=== PATIENT | female | born 1995 | race Caucasian/White ===

== ENCOUNTER 2021-11-17 17:42 | Emergency (ER) | payer BC, SELFPAY ==
[2021-11-17 17:54] VITALS: BP 99/64; PULSE 98; RESP 14; TEMP 37.1; O2SAT 99
--- NOTE | 2021-11-17 18:04 | ED.FEMALEGU ---
HPI - Female Genitourinary General Chief complaint: Urogenital-Female Stated complaint: Urinary Problem Time Seen by Provider: 11/17/21 18:04 Source: patient, RN notes reviewed and old records reviewed Mode of arrival: ambulatory Limitations: no limitations History of Present Illness HPI Narrative: 26-year-old female who presents to [facility] with complaints of 2-day history of urinary frequency burning suprapubic pressure and mid lower back pain. Patient denies any vaginal bleeding or any vaginal discharge or any itching, denies any concern for exposure to STD's. Patient states that she took 3 doses of Macrobid that her [id number] gave her and she has been consuming large quantities of water. Patient states that she is breast feeding. Patient reports that she has had UTI's in the past with similar symptoms.Patient denies any nausea or vomiting or any fevers, chills or sweats. MD elicited complaint: dysuria, back pain and other (suprapubic pain) Pertinent past history: other (previous UTI's) Location of symptoms: suprapubic and low back Related Data Allergies Allergy/AdvReac Type Severity Reaction Status Date / Time amoxicillin [From Augmentin] Allergy Blister Verified 11/17/21 17:58 clavulanic acid Allergy Blister Verified 11/17/21 17:58 [From Augmentin] clindamycin Allergy Rash Verified 11/17/21 17:58 phenazopyridine [From Azo] Allergy Nausea and Verified 11/17/21 17:58 Vomiting Review of Systems Review of Systems: CONSTITUTIONAL: Denies fever, chills, or sweats. EYES: Denies visual changes, redness, or discharge. ENT: Denies rhinorrhea, congestion, sore throat, or otalgia. CARDIOVASCULAR: Denies chest pain, palpitations, or edema. RESPIRATORY: Denies cough or dyspnea. GASTROINTESTINAL: suprapubic abdominal pressure, no nausea, vomiting, or diarrhea. GENITOURINARY: Positive dysuria no visible hematuria SKIN: Denies rash or itching. MUSCULOSKELETAL: reports mid lumbar back pain, no joint pain, or myalgia. NEUROLOGIC: Denies headache, numbness, or weakness. PSYCHIATRIC: Positive for history of anxiety or depression. All systems reviewed & are unremarkable except as noted in HPI and below [facility] Past Medical History Medical History (Updated 11/18/21 @ 07:54 by Leidy Tam NP) Anxiety UTI (urinary tract infection) Surgical History Surgical History (Updated 11/18/21 @ 07:53 by Leidy Tam NP) H/O bilateral inguinal hernia repair History of tonsillectomy Social History Social History (Updated 11/17/21 @ 18:24 by Leidy Tam NP) Smoking status: Never smoker Alcohol intake: unknown Substance use: never Living arrangements: with family Gender identity (if verbalized by the patient): Female Comments At time of signature, agree with nursing past medical, surgical, social and family history. There is no relevant family history pertinent to the presenting complaint Exam Narrative: GENERAL: Well-appearing, well-nourished, and in no acute distress. HEAD: Normocephalic, atraumatic. EYES: PERRLA and EOMI. ENT: Nares clear, no rhinorrhea or epistaxis. Mucous membranes moist.TM's normal with good light reflex, throat pink with no lesions or exudates, no tonsils present. NECK: Supple.no lymphadenopathy CHEST: Clear to auscultation. No respiratory distress. HEART: Regular rate and rhythm. No murmur heard. Normal peripheral pulses. ABDOMEN: Soft, tender suprapubic abdomen, nondistended, normal active bowel sounds.No CVA tenderness noted on examination EXTREMITIES: Normal range of motion. No edema. SKIN: Warm, dry, no rash. NEURO: No focal deficits. Alert and oriented x3. Course Course Level of Care: Express Care Visit Vital Signs Vital signs: Vital Signs Temperature 37.1 C 11/17/21 17:54 Pulse Rate 98 11/17/21 17:54 Respiratory Rate 14 11/17/21 17:54 Blood Pressure 99/64 L 11/17/21 17:54 Pulse Oximetry 99 11/17/21 17:54 Temperature 37.1 C 11/17/21 17:5
== END 2021-11-17 18:21 | disposition home or self-care (01) ==
PROVIDERS: Emergency Provider Registered Nurse
DX: R30.0 Dysuria (principal); R35.0 Frequency of micturition; R10.30 Lower abdominal pain, unspecified; M54.50 Low back pain, unspecified
CPT/HCPCS: 81003; 87077; 87086; 87088; 99213; G0463

== ENCOUNTER 2022-03-04 09:28 | Emergency (ER) | payer SELFPAY ==
--- NOTE | 2022-03-04 09:39 | ED.EAR ---
HPI - Ear Problem General Chief complaint: Ear Stated complaint: ear infection Time Seen by Provider: 03/04/22 09:40 Source: patient Mode of arrival: ambulatory Limitations: no limitations History of Present Illness HPI Narrative: Ms. Ashley is a 26-year-old female patient presenting to the clinic today with complaints of possible ear infection x2 3 days. Mother reports that both of her ears have been hurting. States she is still nasally congested and her ears are congested as well. Reports having COVID 2 to 3 weeks ago. She denies any fever or chills. She is currently breast-feeding. Related Data Allergies Allergy/AdvReac Type Severity Reaction Status Date / Time amoxicillin [From Augmentin] Allergy Blister Verified 03/04/22 09:34 clavulanic acid Allergy Blister Verified 03/04/22 09:34 [From Augmentin] clindamycin Allergy Rash Verified 03/04/22 09:34 phenazopyridine [From Azo] Allergy Nausea and Verified 03/04/22 09:34 Vomiting Review of Systems Review of Systems: Pertinent positives per HPI. Patient denies any fever, chills, rash, headache, visual changes, dizziness, cough, runny nose, sore throat, shortness of breath, chest pain, palpitations, nausea, vomiting, diarrhea, constipation, abdominal pain, or any urinary issues. PMFSH Past Medical History Medical History Anxiety UTI (urinary tract infection) Surgical History Surgical History H/O bilateral inguinal hernia repair History of tonsillectomy Social History Social History Smoking status: Never smoker Alcohol intake: unknown Substance use: never Gender identity (if verbalized by the patient): Female Comments At the time of my signature, I reviewed and agree with the nursing past medical, surgical, social, and family history. There is no relevant family history pertinent to the patient complaint. Exam Narrative: General: Well-developed, well nourished, in no apparent distress Head: Normocephalic, atraumatic Eyes: Pupils equally round and reactive to light bilaterally, EOM intact, sclera and conjunctive clear, no discharge, lids normal Ears: TMs intact, dull, mild bulging, ear canals clear, no drainage, grossly hearing normal. Nose: Nares patent, clear nasal discharge, no inflammation, no sinus tenderness. Mouth: Oropharynx without lesions or masses, good dentition, MMM. Postnasal drip Neck: Supple, trachea midline, no enlargement of anterior or posterior cervical nodes, no thyroid masses or goiter palpable. Cardio: Regular rate and rhythm, s1 and s2 normal, no murmur appreciated. Resp: Clear to auscultation bilaterally anteriorly and posteriorly, no rhonchi, rales, wheezing or rubs Course Course Emergency Course: Portions of this record may have been created with voice recognition software. Level of Care: Express Care Visit Vital Signs Vital signs: Vital Signs Temperature 36.8 C 03/04/22 09:42 Pulse Rate 116 H 03/04/22 09:42 Respiratory Rate 16 03/04/22 09:42 Blood Pressure 102/69 03/04/22 09:42 Pulse Oximetry 99 03/04/22 09:42 Oxygen Delivery Room Air 03/04/22 09:42 Temperature 36.8 C 03/04/22 09:42 Pulse Rate 116 H 03/04/22 09:42 Respiratory Rate 16 03/04/22 09:42 Blood Pressure 102/69 03/04/22 09:42 Pulse Oximetry 99 03/04/22 09:42 Oxygen Delivery Room Air 03/04/22 09:42 Vital signs reviewed Medical Decision Making MDM Narrative Medical decision making narrative: At the time of visit patient is resting comfortably on the exam table. I suspect the patient has URI with eustachian tube dysfunction. Prednisone has been prescribed to help with congestion and ear pressure. Supportive measures were discussed with the patient she voiced understanding of discharge instructions Differential D
[2022-03-04 09:42] VITALS: BP 102/69; PULSE 116; RESP 16; TEMP 36.8; O2SAT 99
== END 2022-03-04 10:04 | disposition home or self-care (01) ==
PROVIDERS: Emergency Provider Nurse Practitioner Family
DX: H69.93 Unspecified Eustachian tube disorder, bilateral (principal); J06.9 Acute upper respiratory infection, unspecified; Z86.16 Personal history of COVID-19
CPT/HCPCS: 99213; G0463

== ENCOUNTER 2022-12-28 09:18 | Emergency (ER) | payer SELFPAY ==
[2022-12-28 09:23] VITALS: BP 110/61; PULSE 120; RESP 16; TEMP 36.5; O2SAT 100
--- NOTE | 2022-12-28 09:25 | ECG_ITS ---
Measurements Intervals Scalf Rate: 110 P: 78 MD: 135 QRS: 42 QRSD: 86 T: 51 QT: 322 QTc: 437 Interpretive Statements SINUS TACHYCARDIA RSR' IN V1 OR V2, PROBABLY NORMAL VARIANT BASELINE ARTIFACT- I, II, III ABNORMAL ECG NO PREVIOUS ECG AVAILABLE FOR COMPARISON Electronically Signed On 12-28-2022 12:27:53 CDT by Errol Alegria D.O.
--- NOTE | 2022-12-28 09:54 | ED.GENADULT ---
HPI - General Adult General Chief complaint: Allergic Reaction Stated complaint: heart palpitations, dizzy, shaky Time Seen by Provider: 12/28/22 09:39 Source: patient Mode of arrival: ambulatory Limitations: no limitations History of Present Illness HPI narrative: Patient is a 27 y/o female who presents to the ED with c/o possible allergic reaction. Patient reports she took Midol around 8am this morning for menstrual cramps. She has taken this before for similar sx's. Around 830am, she began feeling very shaky, jittery, anxious, dizzy, lightheaded, nauseous. She developed tightness in her chest and throat, which prompted her presentation. Patient did not take anything for sx's. Denies ever having issues with Midol previously. She feels somewhat better currently, but still does report the sensation of tightness in her throat. She denies any difficulty breathing or swallowing, shortness of breath, swelling of tongue/lips, rash, itching, vomiting, fevers, abdominal pain. Related Data Allergies Allergy/AdvReac Type Severity Reaction Status Date / Time amoxicillin [From Augmentin] Allergy Blister Verified 03/04/22 09:34 clavulanic acid Allergy Blister Verified 03/04/22 09:34 [From Augmentin] clindamycin Allergy Rash Verified 03/04/22 09:34 phenazopyridine [From Azo] Allergy Nausea and Verified 03/04/22 09:34 Vomiting Review of Systems Review of Systems: CONSTITUTIONAL: Denies fever, chills, or sweats. ENT: See HPI. CARDIOVASCULAR: See HPI. RESPIRATORY: Denies cough or dyspnea. GASTROINTESTINAL: See HPI. NEUROLOGIC: See HPI. PSYCHIATRIC: See HPI. All systems reviewed & are unremarkable except as noted in HPI and below PMFSH Past Medical History Medical History Anxiety UTI (urinary tract infection) Surgical History Surgical History H/O bilateral inguinal hernia repair History of tonsillectomy Social History Social History Smoking status: Never smoker Alcohol intake: unknown Substance use: never Living arrangements: with family Gender identity (if verbalized by the patient): Female Exam Narrative: GENERAL: Well appearing, thin, non-toxic, in no acute distress. HEAD: Normocephalic, atraumatic. ENT: Mucous membranes slightly dry. No swelling of lips or tongue. No mucosal lesions. Airway patent, able to visualize entirety of posterior pharynx. Uvula midline. Tonsils absent. NECK: Supple. No adenopathy, no masses. No swelling. RESPIRATORY: Airway patent, respirations nonlabored. Clear to auscultation bilaterally, no rales, rhonchi, wheezing. No distress. CARDIOVASCULAR: Regular rate and rhythm without murmurs, rubs, or gallops. Radial pulses 2+ and equal bilaterally. ABDOMINAL: Soft, nontender, nondistended, no hepatosplenomegaly. Normoactive BS. MUSCULOSKELETAL: Moves all extremities. Strength/ROM intact without gross deformities. SKIN: Warm, dry, normal color. No rashes. No urticaria. NEURO: A&O X3. Speech clear. Cranial nerves II-XII grossly intact. Steady gait. Slightly tremulous in upper extremities. PSYCHIATRIC: Anxious. Normal interaction. Course Vital Signs Vital signs: Vital Signs Temperature 97.7 F 12/28/22 09:23 Pulse Rate 120 H 12/28/22 09:23 Respiratory Rate 16 12/28/22 09:23 Blood Pressure 110/61 12/28/22 09:23 Pulse Oximetry 100 12/28/22 09:23 Oxygen Delivery Room Air 12/28/22 09:23 Temperature 97.7 F 12/28/22 09:23 Pulse Rate 95 12/28/22 12:17 Respiratory Rate 20 12/28/22 12:17 Blood Pressure 97/58 L 12/28/22 12:17 Pulse Oximetry 100 12/28/22 12:17 Oxygen Delivery Room Air 12/28/22 09:23 Medical Decision Making MDM Narrative Medical decision making narrative: Patient presented to ED with possible allergic reaction after taking Midol thi
[2022-12-28 10:12] VITALS: BP 107/76; PULSE 102; RESP 18; O2SAT 100
[2022-12-28] MEDS: FAMOTIDINE 20 MG/2 ML VIAL IV PUSH (10:19)
[2022-12-28] MEDS: SODIUM CHLORIDE 0.9% IV 1,000 ML 999 ML IV CONT (10:19)
[2022-12-28] MEDS: diphenhydrAMINE HCl INJ 50 MG/ML VIAL 25 MG IV PUSH (10:19)
[2022-12-28 10:29] VITALS: BP 107/63; PULSE 78
[2022-12-28 10:30] VITALS: BP 110/68; PULSE 91
[2022-12-28 10:32] VITALS: BP 112/62; PULSE 112
[2022-12-28 12:17] VITALS: BP 97/58; PULSE 95; RESP 20; O2SAT 100
== END 2022-12-28 12:25 | disposition home or self-care (01) ==
PROVIDERS: Emergency Provider Physician Assistant
DX: R25.8 Other abnormal involuntary movements (principal); Z87.440 Personal history of urinary (tract) infections; R00.0 Tachycardia, unspecified; T50.995A Adverse effect of other drugs, medicaments and biological substances, initial encounter
CPT/HCPCS: 81025; 93005; 96361; 96374; 96375; 99284; J1200; J7030

== ENCOUNTER 2023-06-14 08:56 | Emergency (ER) | payer OTHER, MEDICAID, SELFPAY ==
--- NOTE | 2023-06-14 09:04 | ED.FEMALEGU ---
HPI - Female Genitourinary General Chief complaint: Urogenital-Female Stated complaint: UTI Time Seen by Provider: 06/14/23 09:11 Source: patient Mode of arrival: ambulatory Limitations: no limitations History of Present Illness HPI Narrative: Bronwyn is a 27-year-old female patient presenting to the clinic today with complaints of possible UTI. She reports she is having some burning with urination. Also reports some vaginal itching. States she did a Monistat 3 and this did not seem to help. Reports she has had recent increase in intercourse with her over the last week. Has had the symptoms for 4 days now. She denies any fever or chills. She denies any abdomen pain or back pain. Related Data Allergies Allergy/AdvReac Type Severity Reaction Status Date / Time amoxicillin [From Augmentin] Allergy Blister Verified 06/14/23 09:01 clavulanic acid Allergy Blister Verified 06/14/23 09:01 [From Augmentin] clindamycin Allergy Rash Verified 06/14/23 09:01 phenazopyridine [From Azo] Allergy Nausea and Verified 06/14/23 09:01 Vomiting Review of Systems Review of Systems: Pertinent positives per HPI. Patient denies any fever, chills, rash, headache, visual changes, dizziness, cough, runny nose, sore throat, shortness of breath, chest pain, palpitations, nausea, vomiting, diarrhea, constipation, abdominal pain. PMF Past Medical History Medical History Anxiety UTI (urinary tract infection) Surgical History Surgical History H/O bilateral inguinal hernia repair History of tonsillectomy Social History Social History Smoking status: Never smoker Alcohol intake: unknown Substance use: never Living arrangements: with family Gender identity (if verbalized by the patient): Female Comments At the time of my signature, I reviewed and agree with the nursing past medical, surgical, social, and family history. There is no relevant family history pertinent to the patient complaint. Course Course Emergency Course: Portions of this record may have been created with voice recognition software. Level of Care: Express Care Visit Vital Signs Vital signs: Vital signs reviewed MDM - Female Genitourinary MDM Narrative Medical decision making narrative: At the time of visit patient is resting comfortably on the exam table. Patient is nontoxic appearing. i suspect patient has a urinary tract infection. Urinalysis shows 1+ leukocyte and trace of blood. Will send in prescription for Macrobid as well as some Diflucan. Supportive measures were discussed with the patient she voiced understanding discharge instructions agrees to treatment plan. Differential Diagnosis Differential diagnosis: Likely urinary tract infection, bacterial vaginosis, vaginitis and cystitis Discharge Plan Discharge Clinical Impression: UTI (urinary tract infection) Qualifiers: Urinary tract infection type: acute cystitis Hematuria presence: with hematuria Qualified Code(s): N30.01 - Acute cystitis with hematuria Patient Disposition: Home, Self-Care Condition: Stable Instructions: Antibiotic Form, Urinary Tract Infection in Women (ED) Additional Instructions: Urinalysis shows 1+ leukocytes and trace of blood Will place you on Macrobid Take Diflucan as prescribed Increase fluids and stay well hydrated Wipe front to back. May use wet wipes. Avoid tub baths If sexually active- pee before and after intercourse. Wear cotton panties Avoid tight clothing up against the genitals Follow up with your PCP in 1 week if symptoms persist. Prescriptions: New nitrofurantoin monohyd/m-cryst [Macrobid] 100 mg capsule 100 mg PO Q12H 5 Days Qty: 10 0RF Rx Instructions: must administer with a meal/food fluconazole 150 mg tablet 15
[2023-06-14 09:09] VITALS: BP 102/58; PULSE 106; RESP 16; TEMP 37.2; O2SAT 100
== END 2023-06-14 09:25 | disposition home or self-care (01) ==
PROVIDERS: Emergency Provider Nurse Practitioner Family
DX: N30.01 Acute cystitis with hematuria (principal)
CPT/HCPCS: 81003; 87086; 87147; 87181; 87186; 99213; G0463

== ENCOUNTER 2023-10-04 11:51 | Emergency (ER) | payer OTHER, MEDICAID, SELFPAY ==
--- NOTE | 2023-10-04 11:56 | ED.URI ---
HPI - URI/Sore Throat General Chief Complaint: Upper Respiratory Infection Stated Complaint: Sore Throat Time Seen by Provider: 10/04/23 11:56 Source: patient Mode of arrival: ambulatory Limitations: no limitations History of Present Illness HPI Narrative: Patient is a 28-year-old female who presents with 5 days of URI symptoms. Patient states this started as fever congestion and has progressed to fatigue, sore throat. Patient tonsils taken out 6 years ago. Patient has been taking over the counter medications with no relief. Related Data Allergies Allergy/AdvReac Type Severity Reaction Status Date / Time amoxicillin [From Augmentin] Allergy Blister Verified 10/04/23 12:16 clavulanic acid Allergy Blister Verified 10/04/23 12:16 [From Augmentin] clindamycin Allergy Rash Verified 10/04/23 12:16 phenazopyridine [From Azo] Allergy Nausea and Verified 10/04/23 12:16 Vomiting Review of Systems Review of Systems: All systems reviewed & are unremarkable except as noted in HPI and below Constitutional: Constitutional: Denies body ache(s), Denies chills, Reports fatigue, Reports fever(s), Denies headache(s), Denies malaise and Denies weakness Eyes: Eyes: Denies blurry vision, Denies itchy eyes and Denies loss of vision ENT: Denies otalgia, Denies headache(s), Reports nasal congestion, Denies sinus pain and Reports sore throat Cardiovascular: Cardiovascular: Denies chest pain, Denies irregular heart rhythm and Denies dyspnea Respiratory: Respiratory: Denies cough and Denies dyspnea Gastrointestinal: Gastrointestinal: Denies abdominal pain, Denies diarrhea, Denies nausea and Denies vomiting Musculoskeletal: Musculoskeletal: Denies back pain, Denies myalgias and Denies arthralgias Integumentary/Breasts: Skin/Breast: Denies pruritus and Denies rash Neurologic: Denies headache(s), Denies loss of vision and Denies weakness Psychiatric: Psychiatric: Reports no additional psychiatric complaints Endocrine: Endocrine: Denies fatigue Allergic/Immunologic: Allergic/Immunologic: Denies itchy eyes PMFSH Past Medical History Medical History Anxiety UTI (urinary tract infection) Surgical History Surgical History H/O bilateral inguinal hernia repair History of tonsillectomy Social History Social History Smoking status: Never smoker Alcohol intake: unknown Substance use: never Living arrangements: with family Gender identity (if verbalized by the patient): Female Comments At time of signature, agree with nursing past medical, surgical, social and family history. There is no relevant family history pertinent to the presenting complaint. Exam Const: General: cooperative, healthy appearing, comfortable, no acute distress and well nourished Nutritional Appearance: well nourished Orientation/consciousness: patient oriented x3 Limitations: no limitations HENMT: Head: normal to inspection, normocephalic and atraumatic Ears: hearing grossly normal bilaterally, external ears normal, TM's normal bilaterally, EAC's normal and no periauricular adenopathy Face/Nose/Sinus: Normal external nose present, Abnormal mucous membranes and turbinates present erythematous bilateral and diffuse, normal facial exam, sinuses nontender and face symmetric Face and sinus: normal facial exam, sinuses nontender and face symmetric Mouth: Yes Normal oral and palatal mucosa present, Yes lip normal, Yes tongue normal, Yes Normal salivary glands and ducts present, Yes oropharynx normal and Yes moist mucous membranes Teeth and gingiva: dentition normal Throat: uvula midline, posterior oropharynx abnormal erythema and exudates and tonsils absent Eyes: General: appearance normal, both eyes and all related structures Alignment and Position: alignment normal and position normal P
[2023-10-04 12:20] VITALS: BP 98/64; PULSE 102; RESP 18; TEMP 36.9; O2SAT 100
== END 2023-10-04 13:15 | disposition home or self-care (01) ==
PROVIDERS: Emergency Provider Nurse Practitioner Family
DX: J02.9 Acute pharyngitis, unspecified (principal)
CPT/HCPCS: 87081; 87880; 99213; G0463

== ENCOUNTER 2023-10-13 11:21 | Emergency (ER) | payer OTHER, MEDICAID, SELFPAY ==
[2023-10-13 11:30] VITALS: BP 125/71; PULSE 104; RESP 16; TEMP 37.2; O2SAT 100
--- NOTE | 2023-10-13 11:42 | ED.URI ---
HPI - URI/Sore Throat General Chief Complaint: Upper Respiratory Infection Stated Complaint: sore throat Time Seen by Provider: 10/13/23 11:45 Source: patient and RN notes reviewed Mode of arrival: ambulatory Limitations: no limitations History of Present Illness HPI Narrative: 28-year-old female presents concern for 2 week history of sore throat. She reports she continues to have fatigue. Reports at the beginning of her illness she had fever, body aches, chills, sweats which have resolved. She denies nasal congestion, rhinorrhea, postnasal drainage. She has been taking cold and flu medicine without relief. She has been on 2 rounds of antibiotics for possible strep but is not had a positive strep test. She has history of a tonsillectomy MD elicited complaint: sore throat Related Data Home Medications Medication Instructions Recorded Confirmed azithromycin 250 mg tablet 250 mg PO DAILY 10/13/23 10/13/23 Allergies Allergy/AdvReac Type Severity Reaction Status Date / Time amoxicillin [From Augmentin] Allergy Blister Verified 10/13/23 11:23 clavulanic acid Allergy Blister Verified 10/13/23 11:23 [From Augmentin] clindamycin Allergy Rash Verified 10/13/23 11:23 phenazopyridine [From Azo] Allergy Nausea and Verified 10/13/23 11:23 Vomiting Review of Systems Review of Systems: CONSTITUTIONAL: Denies malaise, chills, sweats, or fever. Reports fatigue EYES: Denies visual changes, redness, or discharge. ENT: Denies rhinorrhea, congestion, sinus pain, otalgia. Reports sore throat. CARDIOVASCULAR: Denies chest pain, palpitations, or edema. RESPIRATORY: Denies cough. Denies dyspnea. GASTROINTESTINAL: Denies abdominal pain, nausea, vomiting, diarrhea SKIN: Denies rash or itching. MUSCULOSKELETAL: Denies myalgia. NEUROLOGIC: Denies headache. All systems reviewed & are unremarkable except as noted in HPI and below PMFSH Past Medical History Medical History Anxiety UTI (urinary tract infection) Surgical History Surgical History H/O bilateral inguinal hernia repair History of tonsillectomy Social History Social History (Reviewed 10/04/23 @ 13:04 by SHAINA Rice Smoking status: Never smoker Alcohol intake: unknown Substance use: never Living arrangements: with family Gender identity (if verbalized by the patient): Female Comments At time of signature, agree with nursing past medical, surgical, social and family history. There is no relevant family history pertinent to the presenting complaint Exam Narrative: GENERAL: Well-appearing, well-nourished, and in no acute distress. HEAD: Normocephalic EYES: PERRLA, conjunctivae clear ENT: Nares clear. Mucous membranes moist. TM pearly villegas with sharp light reflex bilaterally; no tragal tenderness. Oropharynx erythematous with white lesions. Tonsils not enlarged and without exudate, no drooling, no hoarseness, no trismus, uvula midline. NECK: Supple. No lymphadenopathy CHEST: Clear to auscultation, breath sounds equal. No wheezing, rhonchi, rales, or stridor. No respiratory distress, speaks in full sentences. HEART: Regular rate and rhythm. No murmur heard. SKIN: Warm, dry, no rash. NEURO: Alert and oriented x3. PSYCH: Normal mood and affect Course Course Emergency Course: Patient is aware of diagnosis, understands and agrees to treatment plan. Anticipatory guidance given. Patient agrees to follow-up as directed and is aware of reasons to seek care at the emergency department. Portions of this record may have been created with voice recognition software Level of Care: Express Care Visit Vital Signs Vital signs: Vital Signs Temperature 98.9 F 10/13/23 11:30 Pulse Rate 104 H 10/13/23 11:30 Respiratory Rate 16 10/13/23 11:30 Blood Pressure 125/71 10/13/23 11:30 Pulse Oximetry 100 10/13/23 11:30 O
== END 2023-10-13 12:10 | disposition home or self-care (01) ==
PROVIDERS: Emergency Provider Nurse Practitioner
DX: J02.9 Acute pharyngitis, unspecified (principal)
CPT/HCPCS: 36416; 86308; 99213; G0463

== ENCOUNTER 2024-03-18 10:22 | Emergency (ER) | payer OTHER, MEDICAID, SELFPAY ==
--- NOTE | 2024-03-18 10:22 | ED.FEMALEGU ---
HPI - Female Genitourinary General Chief complaint: Urogenital-Female Stated complaint: UTI Time Seen by Provider: 03/18/24 10:22 Source: patient Mode of arrival: ambulatory Limitations: no limitations History of Present Illness HPI Narrative: Bronwyn is a 28-year-old female patient presenting to the clinic today with complaints of possible UTI. She reports her symptoms started over the weekend with burning with urination and urinary frequency. Denies any fever or chills. Denies any abdominal pain but does state that she has some low back pain. Denies any vaginal discharge or odor. States she gets urinary tract infections frequently. Has been trying to increase her fluid intake to flush her kidneys. Related Data Allergies Allergy/AdvReac Type Severity Reaction Status Date / Time amoxicillin [From Augmentin] Allergy Blister Verified 03/18/24 10:36 clavulanic acid Allergy Blister Verified 03/18/24 10:36 [From Augmentin] clindamycin Allergy Rash Verified 03/18/24 10:36 phenazopyridine [From Azo] Allergy Nausea and Verified 03/18/24 10:36 Vomiting Review of Systems Review of Systems: Pertinent positives per HPI. Patient denies any fever, chills, rash, headache, visual changes, dizziness, cough, runny nose, sore throat, shortness of breath, chest pain, palpitations, nausea, vomiting, diarrhea, constipation, abdominal pain. PMFSH Past Medical History Medical History Anxiety UTI (urinary tract infection) Surgical History Surgical History H/O bilateral inguinal hernia repair History of tonsillectomy Social History Social History Smoking status: Never smoker Alcohol intake: unknown Substance use: never Living arrangements: with family Gender identity (if verbalized by the patient): Female Comments At the time of my signature, I reviewed and agree with the nursing past medical, surgical, social, and family history. There is no relevant family history pertinent to the patient complaint. Exam Narrative: General: Well-developed, well nourished, in no apparent distress. Head: Normocephalic, atraumatic. Cardio: Regular rate and rhythm, s1 and s2 normal, no murmur appreciated. Resp: Clear to auscultation bilaterally, no rhonchi, rales, wheezing or rubs. Abdomen: Soft, pliable, bowel sounds present in all quadrants, mild suprapubic tender to palpation, no organomegly, no CVAT tenderness. Course Course Emergency Course: Portions of this record may have been created with voice recognition software. Level of Care: Express Care Visit Vital Signs Vital signs: Vital signs reviewed MDM - Female Genitourinary MDM Narrative Medical decision making narrative: At the time of visit patient is resting comfortably on the exam table. Patient appears to be nontoxic. Labs: Urinalysis positive for trace leukocyte. We will send for culture. Plan: Patient is having UTI symptoms with trace of leukocyte. We will place patient on Macrobid and wait for urine culture results. Supportive measures were discussed with the patient and they voiced understanding discharge instructions and agrees to treatment plan. Return precautions reviewed Differential Diagnosis Differential diagnosis: Likely urinary tract infection and cystitis Discharge Plan Discharge Clinical Impression: Urinary tract infection Qualifiers: Urinary tract infection type: acute cystitis Hematuria presence: without hematuria Qualified Code(s): N30.00 - Acute cystitis without hematuria Patient Disposition: Home, Self-Care Condition: Stable Instructions: Antibiotic Form, Urinary Tract Infection in Women (ED) Additional Instructions: UA shows trace of leukocytes. We will send for culture Take macrobid as prescribed. Increase fluids and stay well hy
[2024-03-18 10:41] LABS: EDUAAPPEAR Clear; EDUABILI Negative; EDUABLOOD Negative; EDUAGLUCOSE Negative; EDUAKETONE Negative; EDUALEUKO Negative; EDUANITRATE Negative; EDUAPROTEIN Negative; EDUASPGRAVITY 1.005; EDUAUROBILI 0.2
== END 2024-03-18 10:43 | disposition home or self-care (01) ==
LOC: EXPCOLL 10:25
PROVIDERS: Emergency Provider Nurse Practitioner Family
DX: N30.00 Acute cystitis without hematuria (principal)
CPT/HCPCS: 81003; 87086; 87088; 99213; G0463

== ENCOUNTER 2024-09-25 09:46 | Emergency (ER) | payer OTHER, MEDICAID, SELFPAY ==
[2024-09-25 10:04] VITALS: BP 91/66; PULSE 130; RESP 18; TEMP 37.2; O2SAT 98
--- NOTE | 2024-09-25 10:57 | ED.GENADULT ---
HPI - General Adult General Chief complaint: Upper Respiratory Infection Stated complaint: ear pain,fever,chills,bodyaches History of Present Illness HPI narrative: Bronwyn Ashley is a 28 y/o female presents with reports of having fever, body aches, cough, congestion, ear pain that started 3 days ago. She states her daughter had the same symptoms that started 4 days ago but is doing better and eating well. She states that she is keeping fluids down eating and drinking fine no abdominal pain nausea or vomiting. She states that she was just concerned she really wanted her ears checked because she was having some pain in them but is not terrible. She states that she is taking Tylenol and Motrin for her body aches fevers. Related Data Allergies Allergy/AdvReac Type Severity Reaction Status Date / Time amoxicillin (From Augmentin) Allergy Blister Verified 09/25/24 10:30 clavulanic acid (From Allergy Blister Verified 09/25/24 10:30 Augmentin) clindamycin Allergy Rash Verified 09/25/24 10:30 phenazopyridine (From Azo) Allergy Nausea and Verified 09/25/24 10:30 Vomiting oseltamivir (From Tamiflu) AdvReac Intermediate Nightmare Verified 09/25/24 10:37 Review of Systems Review of Systems: All systems reviewed & are unremarkable except as noted in HPI and below PMFSH Past Medical History Medical History Anxiety UTI (urinary tract infection) Surgical History Surgical History History of tonsillectomy H/O bilateral inguinal hernia repair Social History Social History Smoking status: Never smoker Alcohol intake: unknown Substance use: never Living arrangements: with family Gender identity (if verbalized by the patient): Female Exam Narrative: GENERAL: Well-appearing, well-nourished, and in no acute distress. HEAD: Normocephalic, atraumatic. EYES: PERRLA and EOMI. ENT: Nares clear, no rhinorrhea or epistaxis. Mucous membranes moist. Oropharynx without tonsillar hypertrophy exudate or other lesions. Bilateral TMs pearly villegas nonbulging NECK: Supple. No adenopathy or masses. No carotid bruits or JVD CHEST: Clear to auscultation. No respiratory distress. No wheezes rales or rhonchi HEART: Regular rate and rhythm. No murmur heard. Normal peripheral pulses. EXTREMITIES: Normal range of motion. No edema. SKIN: Warm, dry, no rash. NEURO: No focal deficits. Alert and oriented x3. PSYCH: Normal mood and affect. Course Course Level of Care: Express Care Visit Vital Signs Vital signs: Vital Signs Temperature 37.2 C 09/25/24 10:04 Pulse Rate 130 H 09/25/24 10:04 Respiratory Rate 18 09/25/24 10:04 Blood Pressure 91/66 L 09/25/24 10:04 Pulse Oximetry 98 09/25/24 10:04 Oxygen Delivery Room Air 09/25/24 10:04 Temperature 37.2 C 09/25/24 10:04 Pulse Rate 130 H 09/25/24 10:04 Respiratory Rate 18 09/25/24 10:04 Blood Pressure 91/66 L 09/25/24 10:04 Pulse Oximetry 98 09/25/24 10:04 Oxygen Delivery Room Air 09/25/24 10:04 Medical Decision Making MDM Narrative Medical decision making narrative: ED COURSE AND MEDICAL DECISION MAKING: This 28 year old patient presents with symptoms most suggestive of viral upper respiratory tract infection. Lungs are clear bilaterally without any respiratory distress or accessory muscle use. TM's are pearly villegas with mild effusion/ no evidence of infection - will start her on zyrtec daily to help with the congestion She declines wanting to be swabbed for the flu - says she knows it probably is the flu and the same thing that her daughter has On [place] pt's heart rate document at 130, rechecked here and it is 97- she is keeping liquids down and feels ready to go home. Patient is discharged home in stable condition with expectant management. Return precautions were provided. Procedures: Pulse oximetry interpretation - not hypoxic. Review of medical records. DISPOSITION: Discharged home in stable condition. IMPRESSION: Acute upper respiratory tract infection, likely viral. Medical Records Medical records reviewed: Yes I reviewed the external patient's medical records. Vital Signs Vital Signs: Vital Signs Temperature 37.2 C 09/25/24 10:04 Pulse Rate 130 H 09/25/24 10:04 Respiratory Rate 18 09/25/24 10:04 Blood Pressure 91/66 L 09/25/24 10:04 Pulse Oximetry 98 09/25/24 10:04 Oxygen Delivery Room Air 09/25/24 10:04 Temperature 37.2 C 09/25/24 10:04 Pulse Rate 130 H 09/25/24 10:04 Respiratory Rate 18 09/25/24 10:04 Blood Pressure 91/66 L 09/25/24 10:04 Pulse Oximetry 98 09/25/24 10:04 Oxygen Delivery Room Air 09/25/24 10:04 Vitals reviewed by me Lab Data Lab results reviewed: Yes I reviewed the patient's lab results. Discharge Plan Discharge Clinical Impression: Upper respiratory infection Qualifiers: URI type: unspecified URI Qualified Code(s): J06.9 - Acute upper respiratory infection, unspecified Patient Disposition: Home, Self-Care Condition: Stable Instructions: Antibiotic Form Additional Instructions: Continue to push hydration Start taking the Zyrtec to help with some of the congestion Follow up with your PCP in 1 week If you develop any worsening symptoms/ Chest pain/ Shortness of breath/ vomiting proceed to the ER. Patient Language: Faroese Prescriptions: New Zyrtec 10 mg capsule 10 mg PO DAILY PRN (Reason: allergy symptoms) Qty: 20 0RF Follow-up/Referrals: PHYSICIAN NOT ON STAFF,NONSTAFF [Primary Care Provider] - Stand Alone Forms: Work/School Release IP Time of Disposition: 11:04
== END 2024-09-25 11:11 | disposition home or self-care (01) ==
PROVIDERS: Emergency Provider Nurse Practitioner Family
DX: J06.9 Acute upper respiratory infection, unspecified (principal)
CPT/HCPCS: 99213; G0463

== ENCOUNTER 2024-10-08 08:05 | Emergency (ER) | payer OTHER, MEDICAID, SELFPAY ==
[2024-10-08 08:14] VITALS: BP 94/56; PULSE 104; RESP 16; TEMP 36.1; O2SAT 100
[2024-10-08 08:15] VITALS: PULSE 104; RESP 16; O2SAT 100
--- NOTE | 2024-10-08 08:17 | ED.URI ---
HPI - URI/Sore Throat General Chief Complaint: Upper Respiratory Infection Stated Complaint: sinus issue,migraine Time Seen by Provider: 10/08/24 08:20 Source: patient, RN notes reviewed and old records reviewed Mode of arrival: ambulatory Limitations: no limitations History of Present Illness HPI Narrative: 29-year-old female who presents to [facility] with complaints having influenza A 2 weeks ago for the past 5 .to 6 days has been having increased sinus congestion and drainage which is green in color along with frontal headache and sinus pain. Patient has been taking Zyrtec and also using Advil cold and flu. MD elicited complaint: cough and sore throat Onset (ago): day(s) (5-6 days) Consistency: constant Severity: moderate Description of mucous: green Able to tolerate fluids by mouth: Yes Treatments prior to arrival: other (Zyrtec, Advil cold and flu) Related Data Allergies Allergy/AdvReac Type Severity Reaction Status Date / Time amoxicillin (From Augmentin) Allergy Blister Verified 09/25/24 10:30 clavulanic acid (From Allergy Blister Verified 09/25/24 10:30 Augmentin) clindamycin Allergy Rash Verified 09/25/24 10:30 phenazopyridine (From Azo) Allergy Nausea and Verified 09/25/24 10:30 Vomiting oseltamivir (From Tamiflu) AdvReac Intermediate Nightmare Verified 09/25/24 10:37 Review of Systems Review of Systems: CONSTITUTIONAL: reports malaise,no chills, sweats, or fever. EYES: Denies visual changes, redness, or discharge. ENT: Reports rhinorrhea, congestion, sinus pain,no otalgia and no sore throat. CARDIOVASCULAR: Denies chest pain, palpitations, or edema. RESPIRATORY: Reports occasional dry cough.? Denies dyspnea. GASTROINTESTINAL: Denies abdominal pain, nausea, vomiting, diarrhea SKIN: Denies rash or itching. MUSCULOSKELETAL: Denies myalgia. NEUROLOGIC: Positive frontal headache All systems reviewed & are unremarkable except as noted in HPI and below PMFSH Past Medical History Medical History Anxiety UTI (urinary tract infection) Surgical History Surgical History History of tonsillectomy H/O bilateral inguinal hernia repair Social History Social History Smoking status: Never smoker Alcohol intake: unknown Substance use: never Living arrangements: with family Gender identity (if verbalized by the patient): Female Comments At time of signature, agree with nursing past medical, surgical, social and family history. There is no relevant family history pertinent to the presenting complaint Exam Narrative: GENERAL: Well-appearing, well-nourished, and in no acute distress. HEAD: Normocephalic EYES: PERRLA, conjunctivae clear ENT: Nares clear, turbinates edematous and erythematous, green discharge, sinus pressure and frontal headache. Mucous membranes moist. TM pearly villegas with dull light reflex bilaterally; no tragal tenderness. Oropharynx erythematous without lesions. Tonsils not present and without exudate, no drooling, no hoarseness, no trismus, uvula midline.post nasal drainage NECK: Supple. No lymphadenopathy CHEST: Clear to auscultation, breath sounds equal. No wheezing, rhonchi, rales, or stridor. No respiratory distress, speaks in full sentences. occasional dry cough SAO2 100% on room air HEART: Regular rate and rhythm. No murmur heard. SKIN: Warm, dry, no rash. NEURO: Alert and oriented x3. PSYCH: Normal mood and affect Course Course Emergency Course: Patient is aware of diagnosis, understands and agrees to treatment plan.? Anticipatory guidance given.? Patient agrees to follow-up as directed and is aware of reasons to seek care at the emergency department. Portions of this record may have been created with voice recognition software Level of Care: Express Care Visit Vital Signs Vital signs: Vital Signs Temperature 36.1 C L 10/08/24 08:14 Pulse Rate 104 H 10/08/24 08:14 Respiratory Rate 16 10/08/24 08:14 Blood Pressure 94/56 L 10/08/24 08:14 Pulse Oximetry 100 10/08/24 08:14 Oxygen Delivery Room Air 10/08/24 08:14 Temperature 36.1 C L 10/08/24 08:14 Pulse Rate 104 H 10/08/24 08:15 Respiratory Rate 16 10/08/24 08:15 Blood Pressure 94/56 L 10/08/24 08:14 Pulse Oximetry 100 10/08/24 08:15 Oxygen Delivery Room Air 10/08/24 08:14 Reviewed MDM - URI/Sore Throat MDM Narrative Medical decision making narrative: Differential diagnosis considered: Diggs virus, strep pharyngitis, allergic rhinitis, upper respiratory tract infection, sinusitis, rhinosinusitis, nasopharyngitis. viral pharyngitis, otitis media, otitis externa, pneumonia, bronchitis, viral cough syndrome, viral syndrome, and influenza.? Exam findings show no acute concerns or changes; patient is non-toxic appearing and is in no distress.? Patient is appropriate for outpatient treatment and follow-up. Differential Diagnosis Differential diagnosis: Likely upper respiratory infection, sinusitis, viral infection and other (headache pain) Medical Records Attestation: I reviewed the patient's medical records. Lab Data Attestation: I reviewed the patient's lab results. Critical Care Time Critical Care Time Critical Care Time: No Discharge Plan Discharge Clinical Impression: Bacterial sinusitis Patient Disposition: Home, Self-Care Condition: Stable Instructions: Antibiotic Form, Sinusitis (ED) Additional Instructions: Increase fluids especially juices and water [id number] cough and cold medicine of your choice for your symptoms Tylenol or ibuprofen for any fever pain Zyrtec Claritin or Aracelis daily may also include plain Sudafed heat to the face 20-30 minutes 4-6 times a day for pain Salt water gargles, throat lozenges or throat sprays as desired Antibiotic as directed--finished the medication If your symptoms persist, change or worsen significantly before you can contact your personal physician then please, without delay, go to the emergency department for further evaluation. Follow-up with PCP in 7-10 days or sooner if needed Patient Language: Uruguayan Prescriptions: New azithromycin 250 mg tablet See Rx Instructions .ROUTE .COMPLEX Qty: 6 0RF Rx Instructions: For 250 mg dose pack: take 500 mg today (day 1), then 250 mg for 4 days (days 2-5) Follow-up/Referrals: PHYSICIAN,PRESCHOOL ASSISTANT PRINCIPAL [Primary Care Provider] - Time of Disposition: 08:33 Quality Rosalina Coma Scale Eyes: Open Verbal: Oriented and Alert Motor: Follows Commands [place] Coma Total Score: 15
== END 2024-10-08 08:40 | disposition home or self-care (01) ==
PROVIDERS: Emergency Provider Registered Nurse
DX: J32.9 Chronic sinusitis, unspecified (principal); B96.89 Other specified bacterial agents as the cause of diseases classified elsewhere
CPT/HCPCS: 99213; G0463

== ENCOUNTER 2024-11-16 11:15 | Emergency (ER) | payer OTHER, MEDICAID, SELFPAY ==
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
[2024-11-16 11:27] VITALS: BP 106/71; PULSE 78; RESP 20; TEMP 37.1; O2SAT 99
== END 2024-11-16 12:54 | disposition home or self-care (01) ==
PROVIDERS: Emergency Provider Nurse Practitioner
DX: S40.012A Contusion of left shoulder, initial encounter (principal); V49.9XXA Car occupant (driver) (passenger) injured in unspecified traffic accident, initial encounter; S49.92XA Unspecified injury of left shoulder and upper arm, initial encounter
CPT/HCPCS: 73030; 99213; A4565; G0463

== ENCOUNTER 2024-11-20 10:59 | Outpatient (CLI) | payer OTHER, SELFPAY ==
--- NOTE | ~2024-11-20 | XR_ITS ---
Cervical Spine: AP, lateral, open-mouth views Clinical History: Segmental and somatic dysfunctional cervical region Findings: The normal lordotic curve is maintained. The vertebral bodies and posterior elements appea r intact. The intervertebral disc spaces are well maintained. Pre-vertebral soft tissues are unremar kable. Impression: No significant abnormality is seen.. Reviewed, dictated and finalized at location . Impression: No significant abnormality is seen..
--- NOTE | ~2024-11-20 | XR_ITS ---
Lumbosacral Spine: AP and lateral views Clinical History: Segmental and synthetic dysfunction of the lumbar region. Findings: The normal lordotic curve is maintained. The vertebral bodies and posterior elements are i ntact. The intervertebral disc spaces are preserved. Probable mild facet arthropathy at L4-L5 and L5 -S1. The sacroiliac joints are normally outlined. Impression: Probable mild facet arthropathy lower lumbar spine. Reviewed, dictated and finalized at location M. Impression: Probable mild facet arthropathy lower lumbar spine.
== END 2024-11-20 11:00 | disposition home or self-care (01) ==
DX: M99.01 Segmental and somatic dysfunction of cervical region (principal); M99.03 Segmental and somatic dysfunction of lumbar region
CPT/HCPCS: 72040; 72100

== ENCOUNTER 2025-01-23 08:32 | Emergency (ER) | payer OTHER, MEDICAID, SELFPAY ==
--- NOTE | 2025-01-23 08:34 | ED_ITS ---
HPI - Female Genitourinary General Chief complaint: Urogenital-Female Stated complaint: Urinary Problems Time Seen by Provider: 01/23/25 08:34 Source: patient Mode of arrival: ambulatory Limitations: no limitations History of Present Illness HPI Narrative: Bronwyn is a 29-year-old female patient presenting to the clinic today with complaints UTI symptoms x3 days. She reports she is having burning, frequency, and urgency. States that her has been or trying to have another child and she thinks she got infection due to that. She denies any vaginal discharge or odor. Denies any fevers, chills, abdominal pain, back pain, nausea, or vomiting. Has taking a homeopathic medication treatment to help alleviate her symptoms Related Data Allergies Allergy/AdvReac Type Severity Reaction Status Date / Time amoxicillin (From Augmentin) Allergy Blister Verified 01/23/25 09:14 clavulanic acid (From Allergy Blister Verified 01/23/25 09:14 Augmentin) clindamycin Allergy Rash Verified 01/23/25 09:14 phenazopyridine (From Azo) Allergy Nausea and Verified 01/23/25 09:14 Vomiting oseltamivir (From Tamiflu) AdvReac Intermediate Nightmare Verified 01/23/25 09:14 Review of Systems Review of Systems: Pertinent positives per HPI. Patient denies any fever, chills, rash, headache, visual changes, dizziness, cough, runny nose, sore throat, shortness of breath, chest pain, palpitations, nausea, vomiting, diarrhea, constipation, abdominal pain. PMF Past Medical History Medical History Anxiety UTI (urinary tract infection) Surgical History Surgical History History of tonsillectomy H/O bilateral inguinal hernia repair Social History Social History Smoking status: Never smoker Alcohol intake: unknown Substance use: never Living arrangements: with family Gender identity (if verbalized by the patient): Female Comments At the time of my signature, I reviewed and agree with the nursing past medical, surgical, social, and family history. There is no relevant family history pertinent to the patient complaint. Exam Narrative: General: Well-developed, well nourished, in no apparent distress. Head: Normocephalic, atraumatic. Cardio: Regular rate and rhythm, s1 and s2 normal, no murmur appreciated. Resp: Clear to auscultation bilaterally, no rhonchi, rales, wheezing or rubs. Abdomen: Soft, pliable, bowel sounds present in all quadrants, suprapubic tender to palpation, no organomegly, no CVAT tenderness. : Deferred Course Course Emergency Course: Portions of this record may have been created with voice recognition software. Level of Care: Express Care Visit Vital Signs Vital signs: Vital Signs Temperature 37.7 C H 01/23/25 08:41 Pulse Rate 110 H 01/23/25 08:41 Respiratory Rate 20 01/23/25 08:41 Blood Pressure 103/62 01/23/25 08:41 Pulse Oximetry 100 01/23/25 08:41 Oxygen Delivery Room Air 01/23/25 08:41 Temperature 37.7 C H 01/23/25 08:41 Pulse Rate 110 H 01/23/25 08:41 Respiratory Rate 20 01/23/25 08:41 Blood Pressure 103/62 01/23/25 08:41 Pulse Oximetry 100 01/23/25 08:41 Oxygen Delivery Room Air 01/23/25 08:41 Vital signs reviewed MDM - Female Genitourinary MDM Narrative Medical decision making narrative: At the time of visit patient is resting comfortably on the exam table. Patient appears to be nontoxic. Labs: Urinalysis positive for leukocytes, blood, and nitrates. We will send urine for culture. Plan: I suspect patient has UTI. Prescription for Macrobid was sent to the pharmacy. Supportive measures were discussed with the patient and they voiced understanding discharge instructions and agrees to treatment plan. Return precautions reviewed Differential Diagnosis Differential diagnosis: Likely urinary tract infection, bacterial vaginosis, vaginitis and cystitis Lab Data Labs: Lab Results 01/23/25 Range/Units 08:56 POC Urine Color Green POC Urine Clarity Cloudy POC Urine pH 6.0 POC Ur Specif Cocoa 1.005 POC Urine Protein Negative (Negative) POC Ur Glucose (UA) Negative (Negative) POC Urine Ketones Negative (Negative) POC Urine Blood 1+ (Negative) POC Urine Nitrite Positive (Negative) POC Urine Bilirubin Negative (Negative) POC Urine Urobilinogen 0.2 POC U Leukocyte Esteras 1+ (Negative) Discharge Plan Discharge Clinical Impression: Urinary tract infection Qualifiers: Urinary tract infection type: acute cystitis Hematuria presence: with hematuria Qualified Code(s): N30.01 - Acute cystitis with hematuria Patient Disposition: Home Condition: Stable Instructions: Antibiotic Form, Urinary Tract Infection in Women (ED) Additional Instructions: Urinalysis positive for leukocytes, nitrates, and 1+ blood. We will send urine for culture. Take Macrobid as prescribed Increase fluids and stay well hydrated Wipe front to back. May use wet wipes. Avoid tub baths If sexually active- pee before and after intercourse. Wear cotton panties Avoid tight clothing up against the genitals Follow up with your PCP in 1 week if symptoms persist. Patient Language: Azerbaijani Prescriptions: New nitrofurantoin monohyd/m-cryst [Macrobid] 100 mg capsule 100 mg PO Q12H 5 Days Qty: 10 0RF Rx Instructions: must administer with a meal/food No Action baclofen 10 mg tablet 10 mg PO TID PRN (Reason: muscle pain) Qty: 10 0RF ibuprofen 600 mg tablet 600 mg PO TID PRN (Reason: fever or pain) Qty: 30 0RF Follow-up/Referrals: PHYSICIAN NOT ON STAFF,NONSTAFF [Primary Care Provider] - Time of Disposition: 09:12 Quality NIHSS Nursing Documentation ED NIHSS nursing documentation: reviewed/agree
[2025-01-23 08:41] VITALS: BP 103/62; PULSE 110; RESP 20; TEMP 37.7; O2SAT 100
[2025-01-23 09:05] LABS: EDUAAPPEAR Cloudy; EDUABILI Negative (Negative); EDUABLOOD 1+ (Negative); EDUAGLUCOSE Negative (Negative); EDUAKETONE Negative (Negative); EDUALEUKO 1+ (Negative); EDUANITRATE Positive (Negative); EDUAPROTEIN Negative (Negative); EDUASPGRAVITY 1.005; EDUAUROBILI 0.2
== END 2025-01-23 09:17 | disposition home or self-care (01) ==
PROVIDERS: Emergency Provider Nurse Practitioner Family
DX: N30.01 Acute cystitis with hematuria (principal)
CPT/HCPCS: 81003; 87077; 87086; 87186; 99213; G0463